=== PATIENT | female | born 1980 | race Caucasian/White ===

== ENCOUNTER 2022-12-24 07:30 | Emergency (ER) | payer OTHER ==
[~2022-12-24] VITALS: Ht 165.1 cm; Wt 72.6 kg
[2022-12-24] MEDS ORDERED: TOPROL XL50 M1 PO (07:41)
[2022-12-24 08:47] LABS: HEMATOCRIT 32.7 % (36.0-45.00); HEMOGLOBIN 10.1 g/dL (12.0-15.00); MEAN CELL VOLUME 75.1 fL (80.00-100.00); MEAN CORPUSCULAR HEMOGLOBIN 23.2 pg (27.00-32.0); PLATELET COUNT 336 K/uL (150-450); RED BLOOD COUNT 4.36 M/uL (4.00-6.00); RED CELL DISTRIBUTION WIDTH 17.8 % (11.5-14.5)
== END 2022-12-24 10:44 | disposition home or self-care (01) ==
LOC: EDBD 07:31 → ER 07:31
PROVIDERS: General Practice
DX: J06.9 Acute upper respiratory infection, unspecified (principal); Z20.822 Contact with and (suspected) exposure to COVID-19